=== PATIENT | male | born 2000 | race Caucasian/White ===

== ENCOUNTER → 2018-07-04 15:54 | Emergency (ER) | payer BC ==
[2018-07-04 17:23] LABS: ABS Basophils 0 10^3/ul (0-0.2); ABS Eosinophils 0.1 10^3/ul (0-0.6); ABS Lymphocytes 1.8 10^3/ul (1.0-4.8); ABS Monocytes 0.4 10^3/ul (0-0.8); ABS Neutrophils 3.8 10^3/ul (1.5-7.7); ABS Nucleated RBC 0 10^3/ul; Eosinophil % 1.6 % (0-6); Hematocrit 41 % (42-52); Lymphocyte % 29.8 % (25-47); Mean Corpuscular HGB Conc 34 g/dl (31-36); Mean Corpuscular Hemoglobin 32 pg (27-31); Mean Corpuscular Volume 93 fL (80-94); Mean Platelet Volume 8.2 um3 (7.4-10.4); Nucleated Red Blood Cells % 0; Platelet Count 236 10^3/ul (150-450); Red Blood Count 4.41 10^6/ul (4.00-5.40); Red Cell Distribution Width 14 % (10.5-15); White Blood Count 6.2 10^3/ul (3.5-10.8)
[2018-07-04 17:25] LABS: Urine Appearance Clear; Urine Blood Negative (Negative); Urine Color Yellow; Urine Ketones Negative (Negative); Urine Protein Negative (Negative); Urine Specific Gravity 1.018 (1.010-1.030); Urine Urobilinogen Negative (Negative)
--- NOTE | 2018-07-04 17:29 | ED ---
Psychiatric Complaint - HPI Summary HPI Summary: This patient is a 18 year old M presenting to [facility] with a chief complaint of SI since 16:00 today. He states that he is not suicidal but states that he would kill himself if he had a gun. Has been taking Wellbutrin for the past 2 weeks. Patient has been signed out to Dr. More during a shift change pending a MHE. - History Of Current Complaint Chief Complaint: EDMentalHealth Time Seen by Provider: 07/04/18 16:43 Hx Obtained From: Patient Onset/Duration: Lasting Hours - 16:00 today Has Suicidal: Reports: Thoughts PMH/Surg Hx/FS Hx/Imm Hx Endocrine/Hematology History: Denies: Hx Diabetes Respiratory History: Denies: Hx Asthma Infectious Disease History: No Infectious Disease History: Denies: Traveled Outside the [place] in Last 30 Days - Family History Known Family History: Negative: Cardiac Disease, Diabetes - Social History Alcohol Use: None Hx Substance Use: No Substance Use Type: Reports: None Smoking Status (MU): Current Some Day Smoker Review of Systems Negative: Fever Positive: Other - Suicidal ideations All Other Systems Reviewed And Are Negative: Yes Physical Exam - Summary Physical Exam Summary: Appearance: The patient is well-nourished in no acute distress and in no acute pain. Skin: The skin is warm and dry and skin color reflects adequate perfusion. HEENT: The head is normocephalic and atraumatic. The pupils are equal and reactive. The conjunctivae are clear and without drainage. Nares are patent and without drainage. Mouth reveals moist mucous membranes and the throat is without erythema and exudate. The external ears are intact. The ear canals are patent and without drainage. The tympanic membranes are intact. Neck: The neck is supple with full range of motion and non-tender. There are no carotid bruits. There is no neck vein distension. Respiratory: Chest is non-tender. Lungs are clear to auscultation and breath sounds are symmetrical and equal. Cardiovascular: Heart is regular rate and rhythm. There is no murmur or rub auscultated. There is no peripheral edema and pulses are symmetrical and equal. Abdomen: The abdomen is soft and non-tender. There are normal bowel sounds heard in all four quadrants and there is no organomegaly palpated. Musculoskeletal: There is no back tenderness noted. Extremities are non-tender with full range of motion. There is good capillary refill. There is no peripheral edema or calf tenderness elicited. Neurological: Patient is alert and oriented to person, place and time. The patient has symmetrical motor strength in all four extremities. Cranial nerves are grossly intact. Deep tendon reflexes are symmetrical and equal in all four extremities. Psychiatric: The patient has an appropriate affect and does not exhibit any anxiety or depression. Triage Information Reviewed: Yes Vital Signs On Initial Exam: Initial Vitals Temp Pulse Resp BP Pulse Ox 98.5 F 88 16 124/83 100 07/04/18 15:56 07/04/18 15:56 07/04/18 15:56 07/04/18 15:56 07/04/18 15:56 Vital Signs Reviewed: Yes Diagnostics - Vital Signs Vital Signs Temp Pulse Resp BP Pulse Ox 07/04/18 15:56 98.5 F 88 16 124/83 100 - Laboratory Lab Results: Lab Results 07/04/18 Range/Units 17:18 WBC 6.2 (3.5-10.8) 10^3/ul RBC 4.41 (4.00-5.40) 10^6/ul Hgb 14.0 (14.0-18.0) g/dl Hct 41 L (42-52) % MCV 93 (80-94) fL MCH 32 H (27-31) pg MCHC 34 (31-36) g/dl RDW 14 (10.5-15) % Plt Count 236 (150-450) 10^3/ul MPV 8.2 (7.4-10.4) um3 Neut % (Auto) 62.0 (38-83) % Lymph % (Auto) 29.8 (25-47) % [place] % (Auto) 6.0 (0-7) % Eos % (Auto) 1.6 (0-6) % Baso % (Auto) 0.6 (0-2) % Absolute Neuts (auto) 3.8 (1.5-7.7) 10^3/ul Absolute Lymphs (auto) 1.8 (1.0-4.8) 10^3/ul Absolute Monos (auto) 0.4 (0-0.8) 10^3/ul Absolute Eos (auto) 0.1 (0-0.6) 10^3/ul Absolute Basos (auto) 0 (0-0.2) 10^3/ul Absolute Nucleated RBC 0 10^3/ul Nucleated RBC % 0 Result Diagrams: 07/04/18 17:18 07/04/18 17:18 Lab Statement: Any lab studies that have been ordered have been reviewed, and results considered in the medical decision making process. Course/Dx - Differential Dx/Clinical Impression Provider Diagnosis: Depression with suicidal ideation Discharge - Sign-Out/Discharge Documenting (check all that apply): Sign-Out Patient Signing out patient TO: Jean-Paul More - Pending MHE - Discharge Plan Referrals: No Primary Care Phys,NOPCP [Primary Care Provider] - - Attestation Statements Document Initiated by Scribe: Yes Documenting Scribe: Santana Bullock Provider For Whom Scribe is Documenting (Include Credential): Jer Barnhart MD Scribe Attestation: Santana Lou, scribed for Jer Barnhart MD on 07/04/18 at 1833. Scribe Documentation Reviewed: Yes Provider Attestation: The documentation as recorded by the Santana interiano accurately reflects the service I personally performed and the decisions made by me, Jer Barnhart MD
[2018-07-04 17:42] LABS: EGFR Non-African American 104.9 (>60)
[2018-07-04 23:02] VITALS: BP 108/67
--- NOTE | 2018-07-05 00:22 | ED ---
Progress - Progress Note Progress Note: Sign out received from Dr. Barnhart. After speaking with Dr. Daniels he was diagnosed with adjustment disorder. Patient will be discharged home. Course/Dx - Diagnoses Provider Diagnoses: Adjustment disorder - Provider Notifications Discussed Care Of Patient With: Chary Daniels Time Discussed With Above Provider: 22:00 - Pt will be DC Discharge - Sign-Out/Discharge Documenting (check all that apply): Patient Departure, Receiving Sign-Out - Dr. Barnhart - Discharge Plan Condition: Stable Disposition: HOME Patient Education Materials: Depression (ED), Suicide Prevention (ED) Referrals: [facility]: Psych Services [Outside] - Attestation Statements Document Initiated by Scribe: Yes Documenting Scribe: Baljinder Ortiz Provider For Whom Scribe is Documenting (Include Credential): Jean-Paul More MD Scribe Attestation: Baljinder Lou, scribed for Jean-Paul More MD on 07/05/18 at 0044.
== END | disposition home or self-care (01) ==
LOC: ED 15:54
DX: F32.9 Major depressive disorder, single episode, unspecified (principal); R45.851 Suicidal ideations; F17.200 Nicotine dependence, unspecified, uncomplicated
CPT/HCPCS: 36415; 80053; 80307; 80320; 80329; 81003; 84443; 85025; 99284; G0480